=== PATIENT | female | born 1970 | race Caucasian/White ===

== ENCOUNTER 2017-07-19 13:33 | Inpatient (IN) ==
[2017-07-19] MEDS ORDERED: Albuterol 2.5 MG/3 ML NEBULIZER IH ONE (14:02)
[2017-07-19] MEDS ORDERED: Clindamycin 900 MG/50 ML 900 MG/50 ML IV.SOLN IVPB ONE (14:02)
[2017-07-19] MEDS: Ringers Solution, Lactated 1,000 ML IVC SCH ×2 (14:24→17:15)
[2017-07-19] MEDS: Levalbuterol Neb 1.25 MG/3 ML IH ONE ×2 (14:25→14:49)
--- NOTE | 2017-07-19 14:30 | Anesthesia Evaluation PreOp ---
Date of Encounter: 07/19/17 Time of Encounter: 14:28 - Past History Planned Operation: Right robotic total hip Cardiac History: HTN, Hyperlipidemia, Other (?? 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 fainting spells), CVA (R-sided weakness; CVA in September 2017) Alcohol Use: rarely Drug use: none Medications and Allergies Meloxicam 7.5 mg PO DAILY 04/22/16 [History] OxyCODONE/APAP 10/325 [Percocet 10/325 MG] 1 each PO Q6HR 04/22/16 [History] Albuterol Sulfate [Albuterol Inhaler] 1 - 2 puff IH Q4-6H #1 inhaler 05/18/16 [ Rx] Gabapentin [Neurontin] 800 mg PO TID 05/18/16 [History] Clopidogrel [Plavix] 75 mg PO DAILY 12/24/16 [History] Folic Acid 20 mg PO DAILY 12/24/16 [History] Lisinopril [Zestril] 10 mg PO DAILY 12/24/16 [History] Loratadine [Claritin] 10 mg PO DAILY 12/24/16 [History] predniSONE [PredniSONE] 20 mg PO DAILY #18 tablet 12/24/16 [Rx] Amitriptyline HCl 150 mg PO DAILY 05/18/17 [History] Atorvastatin [Lipitor] 20 mg PO HS 05/18/17 [History] Benzonatate [Tessalon] 100 mg PO QID 05/18/17 [History] Cholecalciferol (Vitamin D3) [Vitamin D] 1,000 unit PO DAILY 05/18/17 [History] Folic Acid 1 mg PO DAILY 05/18/17 [History] Furosemide [Lasix] 20 mg PO DAILY 05/18/17 [History] Gabapentin [Neurontin] 800 mg PO 05/18/17 [History] MethylPREDNISolone [MethylPREDNISolone Dose Pack] 4 mg PO DAILY #21 tab [Rx] Metoprolol Succinate [Toprol Xl] 50 mg PO 05/18/17 [History] Montelukast Sodium [Singulair] 10 mg PO 05/18/17 [History] Potassium Chloride [Klor-Con 10] 10 meq PO 05/18/17 [History] Ranitidine HCl [Zantac] 150 mg PO 05/18/17 [History] hydrOXYzine pamoate [HydrOXYzine Pamoate] 25 mg PO HS 05/18/17 [History] 3 Allergy/AdvReac Type Severity Reaction Status Date / Time morphine Allergy Rash Verified 06/10/17 09:51 Paroxetine [From Paxil] Allergy Nausea Verified 06/10/17 09:51 Penicillins Allergy See Verified 06/10/17 09:51 Comments ibuprofen AdvReac Nausea Verified 06/10/17 09:51 pregabalin [From Lyrica] AdvReac See Verified 06/10/17 09:51 Comments Anesthesia Results - Labs Laboratory Tests 07/18/17 07/18/17 07/18/17 10:05 10:05 10:05 WBC 9.7 Hgb 13.3 Hct 41.6 Plt Count 405 H PT INR APTT Sodium 135 L Potassium 4.0 Chloride 100 Carbon Dioxide 25 BUN 5 L Creatinine 0.74 Est GFR ( Amer) > 60 Est GFR (Non-Af Amer) > 60 BUN/Creatinine Ratio 7 Glucose 108 H Calculated Osmolality 278 L Calcium 9.8 Serum , Qual Negative 07/18/17 10:05 WBC Hgb Hct Plt Count PT 10.9 INR 1.0 APTT 34.2 Sodium Potassium Chloride Carbon Dioxide BUN Creatinine Est GFR ( Amer) Est GFR (Non-Af Amer) BUN/Creatinine Ratio Glucose Calculated Osmolality Calcium Serum , Qual - Imaging EKG: report reviewed, image reviewed (ST) Additional studies: 2015 Holter: ECG demonstrates: Sinus rhythm.12/05/2015. Totals: There were [id number] total beats, including ectopy. Average HR was 104. Minimum HR of 78 occurred at 02:24D2 and maximum HR of 135 occurred at 19:46. There were no Ventricular Ectopics found. Supraventricular Ectopy consisted of 3 single total beats. Pauses occurred 1 time at 02:27D2 after a blocked beat. 2.0 second pause noted. Impression: 1. Diary was not returned. 2. No ventricular ectopy. 3. Rare PACs. 4. One 2s pause, which was a non-conducted P wave during nocturnal hours. 5. Average heart rate 104 bpm. Electronically Signed On 12-07-15 14:37:39 EDT by Chris Russ DO nuclear stress test: Pharm ECG negative for ischemia at level of HR achieved Chest discomfort during Lexiscan Gated EF = 52% Small, mild intesnity, fixed apical septal defect with normal wall motion ( findings consistent with artifact) perfusion imaging was negative for ischemia or infarct Anesthesia Exam Last Vital Signs Temp 97.9 F 07/19/17 14:30 Pulse 118 07/19/17 14:30 Resp 20 07/19/17 14:30 BP 118/81 07/19/17 14:30 Pulse Ox 95 07/19/17 14:30 Weight: 94 kg NPO (# of Hours): > 8 hrs - HEENT Pupil (Motor): Pupils equal, EOMI Mallampati: III Teeth: Missing (loose upper left tooth), Poor dentition Oral Opening: Greater than 3 - STOCK PARTS FABRICATOR STOCK PARTS FABRICATOR Motor: Deficit LUE, Deficit LLE STOCK PARTS FABRICATOR Sensory: Deficit: LUE, LLE - Cardiac Rhythm: Regular Murmur: None - Pulmonary Breath Sounds: bilateral Clear Respiratory Effort: Symmetrical Anesthesia Assess/Plan ASA Score: 3 Modified [place] Scale for Level of Consciousness: Cooperative, oriented, and tranquil Anesthetic Plan: General, Precautions (induce with etomidate due to poor functional capacity and no TTE on file; no spinal due to recently CVA with motor deficits; no intra-thecal duramorph due to morphine allergy) Monitoring Plan: Standard Monitors Recovery Plan: PACU
[2017-07-19] MEDS ORDERED: *HR* Propofol 200 MG/20 ML VIAL IVP ONE (14:31)
[2017-07-19] MEDS ORDERED: *HR* Midazolam HCl 2 MG/2 ML VIAL ONE (14:31)
[2017-07-19] MEDS ORDERED: *HR* FentaNYL (PF) 100 MCG/2 ML VIAL ONE ×2 (14:31→16:36)
[2017-07-19] MEDS ORDERED: *HR* Succinylcholine 200 MG/10 ML VIAL IVP ONE (14:32)
[2017-07-19] MEDS ORDERED: Dexamethasone 4 MG/ML VIAL ONE (14:32)
[2017-07-19] MEDS ORDERED: Ondansetron 4 MG/2 ML VIAL ONE (14:32)
[2017-07-19] MEDS ORDERED: Lidocaine -MPF 2% 2 ML VIAL ONE (14:32)
[2017-07-19] MEDS ORDERED: *HR* OxyCODONE Immed Rel 5 MG TABLET PO PRN ×2 (14:56→18:53)
--- NOTE | 2017-07-19 15:39 | History & Physical Report ---
Date of Encounter: 07/19/17 Time of Encounter: 15:39 24 Hour HP Update - Instructions Instructions: If the History and Physical is less than 30 days old and was completed prior to A.M. admission and or procedure and has NOT been updated on calendar day of procedure please complete this update prior to performing procedure. - Update Patient reports changes in Medical Condition: No Changes in examination, assessment, or condition: No Changes in Medication: No Preop tests/diagnostics Reviewed: Yes Surgery Remains Indicated: Yes Consent for Planned Operative Procedure(s) Verified: Yes - Pre-Operative Checklist Preoperative Checklist Indicated: No Prophylactic Antibiotic Ordered: Yes Is VTE Prophylaxis Indicated?: Yes
[2017-07-19] MEDS ORDERED: Ethanol\\Acetic Acid\\Na Ace\\Ben 1,000 ML IRRIG.SOLN IR ONE (15:50)
--- NOTE | 2017-07-19 16:06 | Discharge Summary ---
<Monica Bradshaw - Last Filed: 07/19/17 17:29> Orders not resulted at time of discharge: Pending orders 07/19/17 15:39 XR hip complete RT [XR] Routine 07/19/17 15:40 Hemoglobin and Hematocrit [HEME] Routine Date of Encounter: 07/19/17 - Discharge Diagnosis (1) Arthritis of right hip Status: Chronic (2) Right hip pain Status: Chronic (3) Status post total hip replacement, right Status: Acute (4) History of CVA (cerebrovascular accident) Status: Chronic (5) Osteoporosis Status: Chronic (6) GERD (gastroesophageal reflux disease) Status: Chronic (7) Tobacco dependence Status: Chronic (8) Hypertension Status: Chronic Qualifiers: Hypertension type: unspecified Qualified Code(s): I10 - Essential (primary ) hypertension (9) Hyperlipidemia Status: Chronic Qualifiers: Hyperlipidemia type: unspecified Qualified Code(s): E78.5 - Hyperlipidemia , unspecified (10) COPD (chronic obstructive pulmonary disease) Status: Chronic Qualifiers: COPD type: unspecified COPD Qualified Code(s): J44.9 - Chronic obstructive pulmonary disease, unspecified (11) Chronic pain Status: Chronic - Hospital Course Hospital course: Ms. Maciel is a 47 year old female - Time Spent with Patient Total time spent providing and/or coordinating discharge services: - Discharge Medications Home Medications: Meloxicam 15 mg PO DAILY 04/22/16 [History] Gabapentin [Neurontin] 800 mg PO QID 05/18/16 [History] Clopidogrel [Plavix] 75 mg PO DAILY 12/24/16 [History] Loratadine [Claritin] 10 mg PO DAILY 12/24/16 [History] Amitriptyline HCl 50 mg PO DAILY 05/18/17 [History] Atorvastatin [Lipitor] 20 mg PO HS 05/18/17 [History] Benzonatate [Tessalon] 100 mg PO QID 05/18/17 [History] Cholecalciferol (Vitamin D3) [Vitamin D3] 1,000 unit PO DAILY 05/18/17 [History] Folic Acid 1 mg PO DAILY 05/18/17 [History] Furosemide [Lasix] 40 mg PO DAILY 05/18/17 [History] Metoprolol Succinate [Toprol Xl] 50 mg PO DAILY 05/18/17 [History] Montelukast Sodium [Singulair] 10 mg PO DAILY 05/18/17 [History] Potassium Chloride [Klor-Con 10] 10 meq PO DAILY 05/18/17 [History] Ranitidine HCl [Zantac] 150 mg PO DAILY 05/18/17 [History] Albuterol Neb 1 aerosol IH PRN PRN 07/19/17 [History] Cyclobenzaprine [Flexeril] 10 mg PO TID PRN 7 Days #21 tablet 07/19/17 [Rx] Flovent Hfa 2 puff IH BID PRN 07/19/17 [History] Lidocaine Patch [Lidoderm 5% patch] 1 each TP DAILY PRN 10 Days #10 adh..patch 07/19/17 [Rx] Montelukast [Singulair] 10 mg PO DAILY 07/19/17 [History] Allergies/Adverse Reactions: 3 Allergy/AdvReac Type Severity Reaction Status Date / Time morphine Allergy Rash Verified 06/10/17 09:51 Paroxetine [From Paxil] Allergy Nausea Verified 06/10/17 09:51 Penicillins Allergy See Verified 06/10/17 09:51 Comments ibuprofen AdvReac Nausea Verified 06/10/17 09:51 pregabalin [From Lyrica] AdvReac See Verified 06/10/17 09:51 Comments Primary care physician: Yojana Jarquin CNP - Patient Status Disposition: Home Health Service Condition: Good - Discharge Instructions Instructions: Cyclobenzaprine (By mouth), Lidocaine Patch (On the skin) Follow Up With: Immanuel Richardson MD [Partnered Physician] - 08/21/17 3:30 pm Li Méndez, MADONNA [Physician Analytical Technician] - 08/01/17 2:15 am Yojana Jarquin CNP [Primary Care Provider] - (Please schedule with Primary 7-10 days post DC. ) Additional Instructions: Discharge Instructions: Total Hip Replacement Please call [facility] ([phone]), your Primary Care Physician, or report to the Emergency Room if you have any of the following symptoms: Nausea, vomiting, fever greater that 101.5, swelling, chest pain, shortness of breath, increased pain/redness/drainage/odor for your incision site, numbness/ tingling, or any other concerning symptoms. ACTIVITY:Weight-bearing as tolerated for 8 weeks with hip dislocation precautions that physical therapy taught you. You may progress as tolerated under the guidance of your physical therapist. You do not need to sleep with a pillow between your legs. You can also seep on the operative side or on your stomach. MEDICATIONS: Upon discharge resume your home medications. Take all the medications as prescribed. Take a stool softener if taking narcotic pain medications. Stool softeners are only effective if you drink enough fluids. Drink 6-8 glass of water or fluids a day, unless this is not allowed for another health problem. Despite using stool softeners, if you haven't had a bowel movement in 3 days, please switch to a gentle laxative. Gentle laxatives are sold over the counter. You should have a bowel movement within 24 hours, if not call the office. You will be discharged from the hospital with a prescription for pain medication. You are encouraged to decrease the use of narcotic pain medication as tolerated. Should you require a refill, please call the office. [facility] prescribes narcotic pain medication for only 4-6 weeks after surgery. If you require pain medication beyond this time period, you may be referred to your Primary Care Physician or to the Pain Clinic for further evaluation. Plan ahead for refills on pain medication as many narcotics either need to be picked up at the office or mailed. It is best to call 48-72 hours in advance of needing a prescription refill so you don't run out of medication. To help control the post-operative pain, you may take NSAIDs (Aleve,Advil, Motrin, ibuprofen, naprosyn) or Tylenol as prescribed on the bottle in addition to the pain medication. ANTICOAGULATION (blood thinners): Continue your Aspirin, Lovenox or Coumadin as prescribed to help prevent a blood clot in the leg or in the lungs. As long as your incision remains dry and you tolerate the NSAIDs (Aleve, Advil, Motrin, Ibuprofen, Naprosyn), it is OK to use the NSAIDS while you are taking your anticoagulation medication. Should your incision start to drain, stop the NSAID and contact our office. Common symptoms of blood clot in the legs include: localized pain, swelling, calf tenderness, redness or discoloration of the skin. Blood clot in the lung symptoms include: shortness of breath, rapid pulse, sweating, and chest pain that worsens with deep breathing, coughing up blood, lightheadedness, feelings of anxiety. If you experience any of these symptoms notify your physician immediately, go to the emergency room, or if having trouble breathing, call 911. WOUND CARE: Leave the dressing on for 7 to 10days. You may change the dressing if it is saturated greater than 50%. Do not get the dressing wet at anytime. Wash your hands with antibacterial soap, rinse and dry prior to any wound care. If you have lety the visiting nurse or rehab facility can remove the stapes 10-14 days after surgery and place steri-strips across the wound. Leave the steri-strips in place until they fall off on their own. You may let water from the shower run on top of the steri-strips. If you do not have a visiting nurse or rehab facility, you will need to return to the office at 10-14 days for the lety to be removed. If you have itching or redness around the dressing call the office. FOLLOW-UP: Please follow up with your surgeon in the orthopedic clinic in 6 weeks from the day of surgery. If you have lety that need to be removed, you will need to come back to the office in 10-14 days from the day of surgery. <Immanuel Richardson - Last Filed: 07/22/17 14:57> Orders not resulted at time of discharge: Pending orders 07/19/17 15:39 XR hip complete RT [XR] Routine 07/19/17 15:40 Hemoglobin and Hematocrit [HEME] Routine Date of Encounter: 07/22/17 Time of Encounter: 14:57 - Discharge Diagnosis (1) Arthritis of right hip Priority: Primary Status: Chronic (2) Status post total hip replacement, right Priority: Primary Status: Acute (3) Hypertension Priority: Secondary Status: Chronic Qualifiers: Hypertension type: unspecified Qualified Code(s): I10 - Essential (primary ) hypertension (4) Hyperlipidemia Priority: Secondary Status: Chronic Qualifiers: Hyperlipidemia type: unspecified Qualified Code(s): E78.5 - Hyperlipidemia , unspecified (5) COPD (chronic obstructive pulmonary disease) Priority: Secondary Status: Chronic Qualifiers: COPD type: unspecified COPD Qualified Code(s): J44.9 - Chronic obstructive pulmonary disease, unspecified (6) CVA (cerebral vascular accident) Priority: Secondary Status: Chronic Qualifiers: CVA mechanism: unspecified Qualified Code(s): I63.9 - Cerebral infarction, unspecified (7) Seizure Priority: Secondary Status: Chronic (8) Obesity (BMI 35.0-39.9 without comorbidity) Priority: Secondary Status: Chronic - Hospital Course Hospital course: Ms. Maciel is a 47 year old female Status post right total hip replacement The patient had an uneventful postoperative course. They received antibiotics and physical therapy and were discharged in stable condition. There will follow -up in the office in 2 weeks. - Time Spent with Patient Total time spent providing and/or coordinating discharge services: Primary care physician: Yojana Jarquin CNP
--- NOTE | 2017-07-19 16:46 | Physician Discharge Referral ---
ExtendedCare Referral Info Transfer To: [facility] Provider in Charge: Dr. Immanuel Richardson - Diagnosis (1) Arthritis of right hip Priority: Primary Status: Chronic (2) Right hip pain Priority: Primary Status: Chronic (3) Status post total hip replacement, right Priority: Primary Status: Acute (4) History of CVA (cerebrovascular accident) Priority: Secondary Status: Chronic (5) Osteoporosis Priority: Secondary Status: Chronic (6) GERD (gastroesophageal reflux disease) Priority: Secondary Status: Chronic (7) Tobacco dependence Priority: Secondary Status: Chronic (8) Hypertension Priority: Secondary Status: Chronic (9) Hyperlipidemia Priority: Secondary Status: Chronic (10) COPD (chronic obstructive pulmonary disease) Priority: Secondary Status: Chronic (11) Chronic pain Priority: Secondary Status: Chronic Expected Duration of Placement: Less than 30 days Prognosis: Good Aware of Diagnosis: Patient Aware of Prognosis: Patient - Transfer Medications Home Medications: Meloxicam 15 mg PO DAILY 04/22/16 [History] OxyCODONE/APAP 10/325 [Percocet 10/325 MG] 1 each PO Q6HR 04/22/16 [History] Gabapentin [Neurontin] 800 mg PO QID 05/18/16 [History] Clopidogrel [Plavix] 75 mg PO DAILY 12/24/16 [History] Loratadine [Claritin] 10 mg PO DAILY 12/24/16 [History] predniSONE [PredniSONE] 20 mg PO DAILY #18 tablet 12/24/16 [Rx] Amitriptyline HCl 50 mg PO DAILY 05/18/17 [History] Atorvastatin [Lipitor] 20 mg PO HS 05/18/17 [History] Benzonatate [Tessalon] 100 mg PO QID 05/18/17 [History] Cholecalciferol (Vitamin D3) [Vitamin D3] 1,000 unit PO DAILY 05/18/17 [History] Folic Acid 1 mg PO DAILY 05/18/17 [History] Furosemide [Lasix] 40 mg PO DAILY 05/18/17 [History] Metoprolol Succinate [Toprol Xl] 50 mg PO DAILY 05/18/17 [History] Montelukast Sodium [Singulair] 10 mg PO DAILY 05/18/17 [History] Potassium Chloride [Klor-Con 10] 10 meq PO DAILY 05/18/17 [History] Ranitidine HCl [Zantac] 150 mg PO DAILY 05/18/17 [History] Montelukast [Singulair] 10 mg PO DAILY 07/19/17 [History] Allergies/Adverse Reactions: 3 Allergy/AdvReac Type Severity Reaction Status Date / Time morphine Allergy Rash Verified 06/10/17 09:51 Paroxetine [From Paxil] Allergy Nausea Verified 06/10/17 09:51 Penicillins Allergy See Verified 06/10/17 09:51 Comments ibuprofen AdvReac Nausea Verified 06/10/17 09:51 pregabalin [From Lyrica] AdvReac See Verified 06/10/17 09:51 Comments - Respiratory Orders Smoking Cessation: Smoking cessation has been advised. For more information, call the [place] Tobacco Quit Line at 7-959-KLIZ-NOW. - Ancillary Orders May use pressure relief devices daily prn, May go on DANIEL w/family/respon alliance party w /meds at nurse discretion PRN, May consult with Dentist, Culinary Internship, Sports Doctor PRN - Mobility Orders Chair, Ambulate - Rehabiliation Orders Rehab Potential: Good Rehab Orders: Evaluation for Physical Therapy, Evaluation for Occupational Therapy Other: Total Hip replacement Precautions Apply cold therapy 3-6x/day for 20 minutes at a time. Encourage ambulation throughout the day and incentive spirometer 10x/hour. Elevate affected extremity as tolerated. Brace: Wear hip abduction pillow when laying/sleeping - Treatments Skin tear care topically daily PRN per policy List/Other: Opsite placed. Keep dressing intact until first follow up appointment. If greater than 50% saturated, notify office, remove dressing and place appropriate dressing back in place. Leave Zipline intact. Opsite dressing is water resistant, not water-proof. OK to shower, but do not get dressing wet. - Diet Orders Regular CERTIFICATION: I certify that the transfer of the above named patient to an Extended Care Facility is necessary for the continuing treatment of the diagnosis listed. The above information is true and accurate reflection of patient's current condition. Confidential - Redisclosure prohibited without a patient's written consent.
--- NOTE | 2017-07-19 16:48 | Physician Discharge Referral ---
Home Health/Hosp Referral Info Transfer to: Home Health Attending Provider: Dr. Immanuel Richardson - Diagnosis (1) Arthritis of right hip Priority: Primary Status: Chronic (2) Right hip pain Priority: Primary Status: Chronic (3) Status post total hip replacement, right Priority: Primary Status: Acute (4) History of CVA (cerebrovascular accident) Priority: Secondary Status: Chronic (5) Osteoporosis Priority: Secondary Status: Chronic (6) GERD (gastroesophageal reflux disease) Priority: Secondary Status: Chronic (7) Tobacco dependence Priority: Secondary Status: Chronic (8) Hypertension Status: Chronic (9) Hyperlipidemia Priority: Secondary Status: Chronic (10) COPD (chronic obstructive pulmonary disease) Priority: Secondary Status: Chronic (11) Chronic pain Priority: Secondary Status: Chronic - Respiratory Orders Smoking Cessation: Smoking cessation has been advised. For more information, call the [place] Tobacco Quit Line at 7-540-KFER-NOW. - Dressing/Wound Care Site: Right hip Type of Dressing/Treatments w/Frequency: Opsite placed. Keep dressing intact until first follow up appointment. If greater than 50% saturated, notify office, remove dressing and place appropriate dressing back in place. Leave Zipline intact. Opsite dressing is water resistant, not water-proof. OK to shower, but do not get dressing wet. - Diet/Nutrition Diet/Nutrition Orders: Regular - Activity Activity Orders: Up ad janett, Ambulate, Chair, Walker - Services Needed Following services are medically necessary services: Nursing, Home Health Aide, Physical Therapy, Occupational Therapy Home Care Orders: Total Hip replacement Precautions Apply cold therapy 3-6x/day for 20 minutes at a time. Encourage ambulation throughout the day and incentive spirometer 10x/hour. Elevate affected extremity as tolerated. Brace: Wear hip abduction pillow when laying/sleeping - Transfer Medications Home Medications: Meloxicam 15 mg PO DAILY 04/22/16 [History] OxyCODONE/APAP 10/325 [Percocet 10/325 MG] 1 each PO Q6HR 04/22/16 [History] Gabapentin [Neurontin] 800 mg PO QID 05/18/16 [History] Clopidogrel [Plavix] 75 mg PO DAILY 12/24/16 [History] Loratadine [Claritin] 10 mg PO DAILY 12/24/16 [History] predniSONE [PredniSONE] 20 mg PO DAILY #18 tablet 12/24/16 [Rx] Amitriptyline HCl 50 mg PO DAILY 05/18/17 [History] Atorvastatin [Lipitor] 20 mg PO HS 05/18/17 [History] Benzonatate [Tessalon] 100 mg PO QID 05/18/17 [History] Cholecalciferol (Vitamin D3) [Vitamin D3] 1,000 unit PO DAILY 05/18/17 [History] Folic Acid 1 mg PO DAILY 05/18/17 [History] Furosemide [Lasix] 40 mg PO DAILY 05/18/17 [History] Metoprolol Succinate [Toprol Xl] 50 mg PO DAILY 05/18/17 [History] Montelukast Sodium [Singulair] 10 mg PO DAILY 05/18/17 [History] Potassium Chloride [Klor-Con 10] 10 meq PO DAILY 05/18/17 [History] Ranitidine HCl [Zantac] 150 mg PO DAILY 05/18/17 [History] Montelukast [Singulair] 10 mg PO DAILY 07/19/17 [History] Allergies/Adverse Reactions: 3 Allergy/AdvReac Type Severity Reaction Status Date / Time morphine Allergy Rash Verified 06/10/17 09:51 Paroxetine [From Paxil] Allergy Nausea Verified 06/10/17 09:51 Penicillins Allergy See Verified 06/10/17 09:51 Comments ibuprofen AdvReac Nausea Verified 06/10/17 09:51 pregabalin [From Lyrica] AdvReac See Verified 06/10/17 09:51 Comments Certification: Further, I certify that my clinical findings support that this patient is homebound (i.e. absences from home require considerable and taxing effort and are for medical reasons or faith services or infrequently or short duration when for other reasons) because: Homebound Reason: Post-surgery restriction and or conditions limit ability to leave home Attestation: My signature below is to certify that this patient is under my care and that I, or nurse practitioner, or a physician banking assistant working with me, has a face-to- face encounter with this patient.
[2017-07-19] MEDS ORDERED: Neostigmine Methylsulfate 3 MG/3 ML SYRINGE ONE (16:58)
--- NOTE | 2017-07-19 17:30 | Orthopedic Operative Note ---
Date of procedure: 07/19/17 Pre-op diagnosis: Right hip arthritis Post-op diagnosis: same Procedure: Procedure: Right Total Hip Replacment robotic-assisted Estimated blood loss: 500 cc Hardware: Metal and polyethylene replacement. [place] DM Cup:54 cup Femoral size 9 stem Head:+4 head with Maryanne Procedural Notes: Grade 4 arthritic changes femoral head acetabular socket, procedure performed with robotic assistance. Operative procedure: The patient was brought to the operating room and placed on the operating room table. After general anesthesia was administered the patient was placed in the lateral decubitus position with the operative leg up. All pressure points were padded appropriately and the head was stabilized in the neutral position. The operative extremity was prepped and draped in the sterile surgical fashion patient received IV antibiotic prior to skin incision. 3 Steinmann pins were placed in the iliac crest 3 cm proximal to the anterior superior iliac spine this was for the robotic-assisted sensor. This was done through a small 2 cm incision. A standard posterior approach is made to the operative hip, the incision was made through the skin and subcutaneous tissue hemostasis was obtained with Bovie cautery. Using careful sharp dissection the fascia was identified and incised exposing the external rotators. The femoral checkpoint was placed leg length was measured at this time utilizing robotic assistance. The external rotators were released off the greater trochanter and tagged with # 2 FiberWire suture. The capsule was T'd open and the hip was brought into internal rotation. Patient noted to have grade 4 arthritic changes femoral head. The femoral neck cut was made at the appropriate level roughly 15 mm proximal to the lesser trochanter aced on preoperative templating. An anterior capsulotomy was performed for the anterior retractor. Soft tissues removed from the acetabulum. Patient noted to have grade 4 arthritic changes acetabulum. The acetabulum checkpoint was placed confirmed. The acetabulum was then mapped with robotic assistance. Based on the preoperative plan the acetabulum was reamed in one step with a 53 reamer. The 54 acetabulum was impacted with robotic assistance and 43 degrees of abduction and 17 degrees of anteversion. The hip was brought back in to internal rotation and prepared with the call box wirer followed by the canal finder followed by the reaming process to a size 9/ 10 broaching process in 20 degrees anteversion. It was broached up to the appropriate size 9. Trial reduction revealed leg lengths close to normal. The femoral implant was impacted in place in 20 degrees of anteversion. Trial reduction found the hip to be stable with 4 head and Maryanne. The trials were removed and the real implants were impacted in place. The hip was reduced, patient had robotic confirmed leg length of 4 mm longer than the contralateral side. The hip had excellent stability with forward flexion to 90 degrees adduction of 30 degrees and internal rotation of 60 degrees. The hip had no shuck. The hips after 2 minutes with a Betadine saline solution. It was irrigated out with 2 L of pulse irrigation. The checkpoints were removed, Steinmann pins were removed. The hip was closed by the PA. The deep tissue was irrigated and closed deep with #1 PDS suture superficially with 0 PDS suture and skin was closed with skin lety and zip tie. The patient was placed in a sterile dressing and abduction pillow. The patient was extubated and transferred to the recovery room in stable condition. Anesthesia: [facility] Surgeon: Immanuel Richardson Was there an contact lens assistant present: No Estimated blood loss (cc): 500 Condition: stable Disposition: PACU
[2017-07-19] MEDS: *HR* FentaNYL (PF) 100 MCG/2 ML VIAL IVP PRN ×2 (17:47→18:10)
[2017-07-19] MEDS ORDERED: *HR* Enoxaparin 30 MG/0.3 ML SYRINGE SQ SCH (18:00)
[2017-07-19] MEDS ORDERED: Acetaminophen IV 1,000 MG/100 ML INFUS..BTL IVPB ONE (18:17)
[2017-07-19 18:20] LABS: Hematocrit 34.9 % (35.3-44.9)
[2017-07-19 18:22] LABS: Hemoglobin 11.3 g/dL (11.5-15.4)
--- NOTE | 2017-07-19 18:35 | Anesthesia Evaluation Post Op ---
Date of Encounter: 07/19/17 Time of Encounter: 18:34 - Vital Signs Vital Signs: Last Vital Signs Temp 97.6 F 07/19/17 17:40 Pulse 111 07/19/17 17:40 Resp 20 07/19/17 17:40 BP 109/70 07/19/17 17:40 Pulse Ox 95 07/19/17 17:40 - Lungs Lungs: Clear Ascult./Percussion - Airway Airway: Non-obstructed - Cardiovascular Regular Rate - Mental Status Mental Status: Alert & Oriented, Answers Appropriately - Pain Pain Scale: 4 - Nausea Vomiting Nausea Vomiting: Not Present - Hydration Hydration: Ice chips - Discharge PostOp Status: Transfer Patient to floor
[2017-07-19] MEDS ORDERED: Ondansetron 4 MG/2 ML VIAL IVP PRN (18:53)
[2017-07-19] MEDS ORDERED: Temazepam 15 MG CAPSULE PO PRN (18:53)
[2017-07-19] MEDS ORDERED: Sennosides 8.6 MG TABLET PO PRN (18:53)
[2017-07-19] MEDS ORDERED: *HR* OxyCODONE/APAP 5/325 TABLET PO PRN (18:53)
[2017-07-19] MEDS ORDERED: Naloxone 0.4 MG/ML INJ IVP PRN (18:53)
[2017-07-19] MEDS ORDERED: Ringers Solution, Lactated 1,000 ML IVC SCH (18:53)
[2017-07-19] MEDS ORDERED: MOM Conc 10 ML UD.LIQ PO PRN (18:53)
[2017-07-19] MEDS: Benzonatate 100 MG CAPSULE PO SCH ×2 (20:02→20:15)
[2017-07-19] MEDS: Gabapentin 100 MG CAPSULE PO SCH ×2 (20:02→20:03)
[2017-07-19] MEDS: traMADol 50 MG TABLET PO PRN (20:03)
[2017-07-19] MEDS: Ascorbic Acid 500 MG TABLET PO SCH (20:08)
[2017-07-19] MEDS ORDERED: Albuterol 2.5 MG/3 ML NEBULIZER IH PRN (22:13)
[2017-07-19] MEDS ORDERED: Beclomethasone 40mcg MDI IH PRN (22:13)
[2017-07-19] MEDS: Clindamycin 900 MG/50 ML 900 MG/50 ML IV.SOLN IVPB SCH (23:32)
[2017-07-20 01:32] LABS: Hematocrit 33.6 % (35.3-44.9); Hemoglobin 10.8 g/dL (11.5-15.4)
[2017-07-20 02:03] LABS: BUN/Creatinine Ratio 10 (6-26); Blood Urea Nitrogen 8 mg/dL (6-20); Calcium 8.8 mg/dL (8.6-10.3); Carbon Dioxide 24 mEq/L (23-29); Chloride 101 mEq/L (98-107); Glucose 241 mg/dL (70-105); Osmolality,Calculated 278 (280-300); Potassium 4.7 mEq/L (3.5-5.1); Sodium 131 mEq/L (136-145); eGFR For African Americans > 60 (> 60); eGFR For Non-African Americans > 60 (> 60)
[2017-07-20] MEDS: traMADol 50 MG TABLET PO PRN (02:39)
[2017-07-20] MEDS ORDERED: *HR* Enoxaparin 30 MG/0.3 ML SYRINGE SQ SCH (06:00)
[2017-07-20 07:50] VITALS: BP 104/71
[2017-07-20] MEDS: Clindamycin 900 MG/50 ML 900 MG/50 ML IV.SOLN IVPB SCH (08:33)
[2017-07-20] MEDS: Benzonatate 100 MG CAPSULE PO SCH (08:34)
[2017-07-20] MEDS: Ascorbic Acid 500 MG TABLET PO SCH (08:34)
[2017-07-20] MEDS ORDERED: Gabapentin 400 MG CAPSULE PO SCH (09:00)
[2017-07-20] MEDS ORDERED: Furosemide 40 MG TABLET PO SCH (09:00)
[2017-07-20] MEDS ORDERED: Cholecalciferol (D-3) 1,000 UNIT TABLET PO SCH (09:00)
[2017-07-20] MEDS ORDERED: Loratadine 10 MG TABLET PO SCH (09:00)
[2017-07-20] MEDS ORDERED: predniSONE 20 MG TABLET PO SCH (09:00)
[2017-07-20] MEDS ORDERED: Multivit/Ca/Min/Fe/FA 1 TAB TABLET PO SCH (09:00)
[2017-07-20] MEDS ORDERED: Folic Acid 1 MG TABLET PO SCH (09:00)
[2017-07-20] MEDS ORDERED: Metoprolol XL (24 HR) Succ 50 MG TAB.ER.24H PO SCH (09:00)
[2017-07-20] MEDS ORDERED: Famotidine 20 MG TABLET PO SCH (09:00)
--- NOTE | 2017-07-20 10:46 | Orthopedics Progress Note ---
Date of Encounter: 07/20/17 Time of Encounter: 10:45 Subjective Interval history: Patient was seen this morning doing well without complaints. Afebrile vital signs stable. Operative extremity: Neurovascularly intact Dressing clean dry and intact Calves nontender Assessment and plan: Continue with postoperative care; D/C today Objective Vital signs: Vital Signs Temp Pulse Resp BP Pulse Ox 07/20/17 07:47 98.4 F 114 17 104/71 96 07/20/17 05:25 97.4 F L 106 15 118/77 94 07/19/17 23:20 97.6 F 108 16 134/91 93 07/19/17 23:01 16 97 07/19/17 22:09 97.6 F 103 15 128/87 94 07/19/17 21:14 98.1 F 98 15 111/80 90 07/19/17 20:11 98.6 F 101 15 120/85 99 07/19/17 19:47 97.8 F 106 15 133/85 95 07/19/17 18:55 98.1 F 106 14 121/82 93 07/19/17 18:40 98.8 F 104 16 131/74 96 07/19/17 18:30 108 16 131/86 94 07/19/17 18:20 108 16 138/84 94 07/19/17 18:10 98.0 F 108 18 127/65 94 07/19/17 18:00 104 20 148/92 92 07/19/17 17:50 109 22 123/93 94 07/19/17 17:40 97.6 F 111 20 109/70 95 07/19/17 14:51 20 118/81 95 07/19/17 14:30 97.9 F 118 20 118/81 95 Intake and Output 07/19/17 07/20/17 07/20/17 23:59 07:59 15:59 Intake Total 1150 / 1150 50 / 50 Output Total 500 / 500 Balance 650 / 650 50 / 50 Intake: IV Fluids 1150 / 1150 50 / 50 Lactated Ringers 1,000 ML @ 75 1000 / 1000 mls/hr IVC .[id number] [facility] Rx#: [id number] Ofirmev 1,000 mg/100 ml 1,000 100 / 100 mg In 100 ml @ 400 mls/hr IVPB ONCE ONE Rx#:[id number] Cleocin Premix 900 MG/50 ML 900 50 / 50 50 / 50 mg In 50 ml @ 50 mls/hr IVPB Q8HR AMANDA Rx#:[id number] Output: Estimated Blood Loss 500 / 500 Other: # Voids 1 - Labs CBC & BMP: 07/20/17 01:04 07/20/17 01:04 Labs: Abnormal lab results Hgb 10.8 g/dL (11.5-15.4) L 07/20/17 01:04 Hct 33.6 % (35.3-44.9) L 07/20/17 01:04 Sodium 131 mEq/L (136-145) L 07/20/17 01:04 Glucose 241 mg/dL (70-105) H 07/20/17 01:04 Calculated Osmolality 278 (280-300) L 07/20/17 01:04 - VTE Documentation of Mechanical Device: Venous foot pump, device Consult Discharge Plan - Plan Referrals: Yojana Jarquin, [employer] [employer] [Primary Care Provider] -
== END 2017-07-20 14:07 | disposition home health service (06) | DRG 301 ==
LOC: SAMDAY 13:33 → 3NENU 18:54
PROVIDERS: ADMIT Orthopaedic Surgery; ATTEND Orthopaedic Surgery